=== PATIENT | male | born 1995 | race Caucasian/White ===

== ENCOUNTER 2018-10-29 18:08 | Emergency (ER) | payer BC, MEDICAID ==
[~2018-10-29] VITALS: Ht 170.2 cm; Wt 66.0 kg
[2018-10-29 18:26] VITALS: BP 138/78
== END 2018-10-29 23:30 | disposition left against medical advice (07) ==
LOC: ER 18:08
DX: Z53.21 Procedure and treatment not carried out due to patient leaving prior to being seen by health care provider (principal)